=== PATIENT | male | born 1970 | race Two or more races ===

== ENCOUNTER → 2018-01-17 | Emergency (ER) | payer OTHER ==
[~2018-01-17] VITALS: Ht 170.2 cm; Wt 83.9 kg
[~2018-01-17] MED LIST: COZAAR25 MG
== END | disposition home or self-care (01) ==
LOC: ER 16:54
DX: R07.89 Other chest pain (principal)

== ENCOUNTER 2019-05-31 15:16 | Outpatient (CLI) | payer OTHER | END 2019-05-31 16:30 | disposition home or self-care (01) | LOC: RAD 15:16 | DX: M17.11 Unilateral primary osteoarthritis, right knee (principal); M17.12 Unilateral primary osteoarthritis, left knee ==

== ENCOUNTER 2019-06-11 10:15 | Emergency (ER) | payer OTHER ==
[~2019-06-11] VITALS: Ht 170.2 cm; Wt 90.7 kg
[2019-06-11] MEDS ORDERED: NORVASC5 MG (10:48)
== END 2019-06-11 18:32 | disposition home or self-care (01) ==
LOC: ER 10:15
DX: K52.89 Other specified noninfective gastroenteritis and colitis (principal); R07.89 Other chest pain

== ENCOUNTER 2023-07-12 09:42 | Emergency (ER) | payer OTHER ==
[~2023-07-12] VITALS: Ht 170.2 cm; Wt 89.8 kg
[~2023-07-12 09:42] MED LIST changes: +NORVASC5 MG
== END 2023-07-12 13:29 | disposition home or self-care (01) ==
LOC: ER 09:42
PROVIDERS: General Practice
DX: I10 Essential (primary) hypertension (principal)